=== PATIENT | female | born 1965 | race Caucasian/White ===

== ENCOUNTER 2018-05-30 19:10 | Inpatient (IN) | payer BC ==
[2018-05-30] MEDS ORDERED: SODIUM CHLORIDE 0.9% 500 ML IV ONE (19:39)
--- NOTE | 2018-05-30 19:47 | ED ---
General Adult HPI - General Chief complaint: Altered Mental Status Stated complaint: confusion Time Seen by Provider: 05/30/18 19:24 Source: patient, family, RN notes reviewed, old records reviewed Mode of arrival: ambulatory Limitations: no limitations - History of Present Illness Initial comments: 53-year-old female presents with confusion that began approximately 3 PM today. She presents for evaluation at 7:30 PM. Patient is accompanied by her daughter who states he's had some repetitive questioning. She states she can remember certain events however the day overall feels cloudy. Denies any focal numbness or weakness. She has reported a mild headache associated with her symptoms. Denies chest pain or shortness of breath. Denies abdominal pain. Denies nausea vomiting or diarrhea. She has history of gastric bypass and is on vitamin supplementation. No past medical history of hypertension or diabetes. She is otherwise healthy. Denies fever or chills. - Related Data Home Medications Medication Instructions Recorded Confirmed rOPINIRole HCL [Requip] 4 mg PO HS 08/28/14 05/30/18 Dextroamphetamine/Amphetamine 30 mg PO TID PRN 06/18/15 05/30/18 [Adderall] PARoxetine [Paxil] 20 mg PO DAILY 08/28/16 05/30/18 Multivitamins, Thera [Multivitamin 1 tab PO DAILY 08/20/17 05/30/18 (formulary)] Allergies Allergy/AdvReac Type Severity Reaction Status Date / Time meperidine HCl [From Demerol] Allergy Anaphylaxis Verified 05/30/18 19:32 Review of Systems ROS Statement: Those systems with pertinent positive or pertinent negative responses have been documented in the HPI. ROS Other: All systems not noted in ROS Statement are negative. Past Medical History Past Medical History: Blood Disorder Additional Past Medical History / Comment(s): MITRAL VALVE PROLAPSE, insomnia, restless leg, dardive dyskinesia, numbnes right fingers. ANEMIA History of Any Multi-Drug Resistant Organisms: None Reported Past Surgical History: Bariatric Surgery, Cholecystectomy, Hysterectomy Additional Past Surgical History / Comment(s): extra ureter removed, carpal tunnel surg caitlin, cubital tunnel right elbow, D&C x2 Past Anesthesia/Blood Transfusion Reactions: No Reported Reaction Past Psychological History: Anxiety, Depression Smoking Status: Former smoker Past Alcohol Use History: None Reported Past Drug Use History: None Reported General Exam Limitations: no limitations General appearance: alert, in no apparent distress Head exam: Present: atraumatic, normocephalic Eye exam: Present: normal appearance, PERRL, EOMI, nystagmus ENT exam: Present: mucous membranes dry Neck exam: Present: normal inspection, meningismus Respiratory exam: Present: normal lung sounds bilaterally. Absent: respiratory distress, wheezes Cardiovascular Exam: Present: regular rate, normal rhythm GI/Abdominal exam: Present: soft, distended, tenderness Extremities exam: Present: normal inspection, normal capillary refill. Absent: pedal edema Neurological exam: Present: alert, oriented X3, CN II-XII intact. Absent: motor sensory deficit Psychiatric exam: Present: normal affect, normal mood Skin exam: Present: warm, dry, intact. Absent: cyanosis, diaphoretic Course Vital Signs 05/30/18 05/30/18 19:17 20:22 Temperature 98.7 F Pulse Rate 109 H 76 Respiratory 20 20 Rate Blood Pressure 105/63 113/73 O2 Sat by Pulse 100 99 Oximetry EKG Findings - EKG Comments: EKG Findings:: EKG: Normal sinus rhythm, rate of 87, HI interval 150, QRS duration 78, QTC 435, no ST segment elevation or depression Medical Decision Making - Medical Decision Making 53-year-old female presenting with confusion and amnesia. Patient has nonfocal neurologic exam. She did report mild headache with her symptoms. Head CT is obtained, negative for any intracranial hemorrhage or mass effect. No acute findings. Laboratory workup including CBC, CMP is unremarkable. Urinalysis is nitrate positive, 5 wbc's with some bacteria. Urine culture pending, patient will be treated for urinary tract infection although she has no urinary symptoms at this time. Patient will be placed in observation, for neurology consultation, concern that the symptoms may be related to TIA. - Lab Data Result diagrams: 05/30/18 19:45 05/30/18 19:45 Lab Results 05/30/18 05/30/18 05/30/18 Range/Units 19:45 19:45 19:45 WBC 7.1 (3.8-10.6) k/uL RBC 5.04 (3.80-5.40) m/uL Hgb 13.3 (11.4-16.0) gm/dL Hct 43.0 (34.0-46.0) % MCV 85.4 (80.0-100.0) fL MCH 26.5 (25.0-35.0) pg MCHC 31.0 (31.0-37.0) g/dL RDW 17.2 H (11.5-15.5) % Plt Count 301 (150-450) k/uL Neutrophils % 67 % Lymphocytes % 25 % Monocytes % 5 % Eosinophils % 2 % Basophils % 1 % Neutrophils # 4.8 (1.3-7.7) k/uL Lymphocytes # 1.8 (1.0-4.8) k/uL Monocytes # 0.3 (0-1.0) k/uL Eosinophils # 0.1 (0-0.7) k/uL Basophils # 0.1 (0-0.2) k/uL Hypochromasia Slight Anisocytosis Slight PT (9.0-12.0) sec INR (<1.2) APTT (22.0-30.0) sec Sodium 140 (137-145) mmol/L Potassium 4.0 (3.5-5.1) mmol/L Chloride 105 (98-107) mmol/L Carbon Dioxide 25 (22-30) mmol/L Anion Gap 10 mmol/L BUN 22 H (7-17) mg/dL Creatinine 0.91 (0.52-1.04) mg/dL Est GFR (CKD-EPI)AfAm 83 (>60 ml/min/1.73 sqM) Est GFR (CKD-EPI)NonAf 72 (>60 ml/min/1.73 sqM) Glucose 97 (74-99) mg/dL Calcium 9.7 (8.4-10.2) mg/dL Total Bilirubin 0.6 (0.2-1.3) mg/dL AST 17 (14-36) U/L ALT 22 (9-52) U/L Alkaline Phosphatase 87 (38-126) U/L Total Creatine Kinase 32 (30-135) U/L CK-MB (CK-2) 0.3 (0.0-2.4) ng/mL CK-MB (CK-2) Rel Index 0.9 Troponin I <0.012 (0.000-0.034) ng/mL Total Protein 7.1 (6.3-8.2) g/dL Albumin 4.0 (3.5-5.0) g/dL Urine Color Urine Appearance (Clear) Urine pH (5.0-8.0) Ur Specific [place] (1.001-1.035) Urine Protein (Negative) Urine Glucose (UA) (Negative) Urine Ketones (Negative) Urine Blood (Negative) Urine Nitrite (Negative) Urine Bilirubin (Negative) Urine Urobilinogen (<2.0) mg/dL Ur Leukocyte Esterase (Negative) Urine RBC (0-5) /hpf Urine WBC (0-5) /hpf Ur Squamous Epith Cells (0-4) /hpf Urine Bacteria (None) /hpf Urine Mucus (None) /hpf Urine Opiates Screen (NotDetected) Ur Oxycodone Screen (NotDetected) Urine Methadone Screen (NotDetected) Ur Propoxyphene Screen (NotDetected) Ur Barbiturates Screen (NotDetected) U Tricyclic Antidepress (NotDetected) Ur Phencyclidine Scrn (NotDetected) Ur Amphetamines Screen (NotDetected) U Methamphetamines Scrn (NotDetected) U Benzodiazepines Scrn (NotDetected) Urine Cocaine Screen (NotDetected) U Marijuana (THC) Screen (NotDetected) 05/30/18 05/30/18 Range/Units 19:45 20:30 WBC (3.8-10.6) k/uL RBC (3.80-5.40) m/uL Hgb (11.4-16.0) gm/dL Hct (34.0-46.0) % MCV (80.0-100.0) fL MCH (25.0-35.0) pg MCHC (31.0-37.0) g/dL RDW (11.5-15.5) % Plt Count (150-450) k/uL Neutrophils % % Lymphocytes % % Monocytes % % Eosinophils % % Basophils % % Neutrophils # (1.3-7.7) k/uL Lymphocytes # (1.0-4.8) k/uL Monocytes # (0-1.0) k/uL Eosinophils # (0-0.7) k/uL Basophils # (0-0.2) k/uL Hypochromasia Anisocytosis PT 9.6 (9.0-12.0) sec INR 1.0 (<1.2) APTT 21.8 L (22.0-30.0) sec Sodium (137-145) mmol/L Potassium (3.5-5.1) mmol/L Chloride (98-107) mmol/L Carbon Dioxide (22-30) mmol/L Anion Gap mmol/L BUN (7-17) mg/dL Creatinine (0.52-1.04) mg/dL Est GFR (CKD-EPI)AfAm (>60 ml/min/1.73 sqM) Est GFR (CKD-EPI)NonAf (>60 ml/min/1.73 sqM) Glucose (74-99) mg/dL Calcium (8.4-10.2) mg/dL Total Bilirubin (0.2-1.3) mg/dL AST (14-36) U/L ALT (9-52) U/L Alkaline Phosphatase (38-126) U/L Total Creatine Kinase (30-135) U/L CK-MB (CK-2) (0.0-2.4) ng/mL CK-MB (CK-2) Rel Index Troponin I (0.000-0.034) ng/mL Total Protein (6.3-8.2) g/dL Albumin (3.5-5.0) g/dL Urine Color Yellow Urine Appearance Cloudy H (Clear) Urine pH 5.0 (5.0-8.0) Ur Specific [place] 1.020 (1.001-1.035) Urine Protein Negative (Negative) Urine Glucose (UA) Negative (Negative) Urine Ketones Negative (Negative) Urine Blood Negative (Negative) Urine Nitrite Positive H (Negative) Urine Bilirubin Negative (Negative) Urine Urobilinogen <2.0 (<2.0) mg/dL Ur Leukocyte Esterase Large H (Negative) Urine RBC 1 (0-5) /hpf Urine WBC 5 (0-5) /hpf Ur Squamous Epith Cells 3 (0-4) /hpf Urine Bacteria Occasional H (None) /hpf Urine Mucus Occasional H (None) /hpf Urine Opiates Screen Not Detected (NotDetected) Ur Oxycodone Screen Not Detected (NotDetected) Urine Methadone Screen Not Detected (NotDetected) Ur Propoxyphene Screen Not Detected (NotDetected) Ur Barbiturates Screen Not Detected (NotDetected) U Tricyclic Antidepress Not Detected (NotDetected) Ur Phencyclidine Scrn Not Detected (NotDetected) Ur Amphetamines Screen Not Detected (NotDetected) U Methamphetamines Scrn Not Detected (NotDetected) U Benzodiazepines Scrn Not Detected (NotDetected) Urine Cocaine Screen Not Detected (NotDetected) U Marijuana (THC) Screen Not Detected (NotDetected) Disposition Clinical Impression: Altered mental status, Amnesia, TIA (transient ischemic attack) Disposition: ADMITTED IP TO THIS [facility] Condition: Stable Is patient prescribed a controlled substance at d/c from ED?: No Referrals: Marlin Templeton MD [Primary Care Provider] - 1-2 days Decision to Admit Reason: Admit from EC Decision Date: 05/30/18 Decision Time: 21:28
[2018-05-30 20:00] LABS: Anisocytosis Slight; Basophils # (A) 0.1 k/uL (0-0.2); Basophils % (A) 1 %; Eosinophils # (A) 0.1 k/uL (0-0.7); Eosinophils % (A) 2 %; HGB 13.3 gm/dL (11.4-16.0); Hypochromasia Slight; Lymphocytes # (A) 1.8 k/uL (1.0-4.8); Lymphocytes % (A) 25 %; MCH 26.5 pg (25.0-35.0); MCV 85.4 fL (80.0-100.0); Mean Platelet Volume 6.3; Monocytes # (A) 0.3 k/uL (0-1.0); Monocytes % (A) 5 %; Neutrophils # (A) 4.8 k/uL (1.3-7.7); Neutrophils % (A) 67 %; Platelet Count 301 k/uL (150-450); RBC 5.04 m/uL (3.80-5.40); RDW 17.2 % (11.5-15.5); WBC 7.1 k/uL (3.8-10.6)
--- NOTE | 2018-05-30 20:09 | XR ---
EXAMINATION TYPE: XR chest 2V DATE OF EXAM: 05/30/2018 COMPARISON: NONE HISTORY: Altered mental status TECHNIQUE: Frontal and lateral views of the chest are obtained. FINDINGS: Heart and mediastinum are normal. Lungs are clear. Diaphragm is normal. Bony thorax appear s normal. There are chest leads. IMPRESSION: Normal chest.
[2018-05-30 20:12] LABS: Calcium 9.7 mg/dL (8.4-10.2); Total Bilirubin 0.6 mg/dL (0.2-1.3); Total Protein 7.1 g/dL (6.3-8.2)
--- NOTE | 2018-05-30 20:15 | CT ---
EXAMINATION TYPE: CT brain wo con DATE OF EXAM: 05/30/2018 COMPARISON: None HISTORY: Confusion. CT DLP: 1121 mGycm Automated exposure control for dose reduction was used. FINDINGS: Ventricles of normal size. There is no mass effect nor midline shift. There is no sign of intracrania l hemorrhage. The calvarium is intact. IMPRESSION: NEGATIVE CT SCAN OF THE BRAIN.
[2018-05-30 20:17] LABS: Creatine Kinase 32 U/L (30-135); Partial Thromboplastin Time 21.8 sec (22.0-30.0); Prothrombin Time 9.6 sec (9.0-12.0)
[2018-05-30 20:30] LABS: Creatine Kinase MB 0.3 ng/mL (0.0-2.4); Troponin I <0.012 ng/mL (0.000-0.034)
[2018-05-30 20:46] LABS: Appearance,Urine Cloudy (Clear); Bacteria,Urine Occasional /hpf; Bilirubin,Urine Negative (Negative); Blood,Urine Negative (Negative); Color,Urine Yellow; Glucose,Urine (UA) Negative (Negative); Ketones,Urine Negative (Negative); Leukocyte Esterase,Urine Large (Negative); Mucus,Urine Occasional /hpf; Nitrite,Urine Positive (Negative); Protein,Urine Negative (Negative); RBC,Urine 1 /hpf (0-5); Squamous Epithelial Cell,Urine 3 /hpf (0-4); Urobilinogen,Urine <2.0 mg/dL (<2.0); WBC,Urine 5 /hpf (0-5)
[2018-05-30 20:53] LABS: Amphetamine Screen,Urine Not Detected (NotDetected); Barbiturate Screen,Urine Not Detected (NotDetected); Benzodiazepines Screen,Urine Not Detected (NotDetected); Cocaine Screen,Urine Not Detected (NotDetected); Methadone Screen, Urine Not Detected (NotDetected); Opiate Screen,Urine Not Detected (NotDetected); Oxycodone Screen, Urine Not Detected (NotDetected); Phencyclidine Screen,Urine Not Detected (NotDetected); Tricyclic Antidepressant,Urine Not Detected (NotDetected); Urn Cannabinoid Scrn Not Detected (NotDetected)
[2018-05-30] MEDS ORDERED: cefTRIAXone 2,000 MG in SODIUM CHLORIDE 0.9% 100 ML IVPB STA (21:01)
[2018-05-30] MEDS ORDERED: ASPIRIN 325 MG TAB PO STA (21:22)
[2018-05-30] MEDS: SODIUM CHLORIDE 0.9% 1,000 ML IV SCH (21:31)
[2018-05-30] MEDS ORDERED: rOPINIRole HCL 4 MG TABLET PO ONE (22:00)
[2018-05-31 05:57] LABS: Glucose,Whole Blood 91 mg/dL (75-99)
[2018-05-31 06:17] LABS: Cholesterol 214 mg/dL (<200); HDL Cholesterol 48 mg/dL (40-60); LDL Cholesterol,Calculated 149 mg/dL (0-99); Triglycerides 85 mg/dL (<150)
[2018-05-31] MEDS: ASPIRIN 325 MG TAB PO SCH (08:37)
[2018-05-31] MEDS: PARoxetine 20 MG TAB PO SCH (08:37)
--- NOTE | 2018-05-31 10:28 | ECHOF ---
Referral Reason:Thrombus MEASUREMENTS -------- HEIGHT: 177.8 cm WEIGHT: 101.2 kg BP: 104/51 RVIDd: 3.2 cm (< 3.3) IVSd: 0.9 cm (0.6 - 1.1) LVIDd: 4.9 cm (3.9 - 5.3) LVPWd: 0.9 cm (0.6 - 1.1) IVSs: 1.5 cm LVIDs: 3.2 cm LVPWs: 1.4 cm LA Diam: 3.7 cm (2.7 - 3.8) LAESV Index (A-L): 21.24 ml/m Ao Diam: 3.2 cm (2.0 - 3.7) AV Cusp: 2.6 cm (1.5 - 2.6) MV EXCURSION: 19.197 mm (> 18.000) MV EF SLOPE: 80 mm/s (70 - 150) EPSS: 0.3 cm MV E Maximiliano: 0.56 m/s MV DecT: 359 ms MV A Maximiliano: 0.77 m/s MV E/A Ratio: 0.73 RAP: 5.00 mmHg RVSP: 31.05 mmHg FINDINGS -------- Sinus rhythm. This was a technically good study. The left ventricular size is normal. Left ventricular wall thickness is normal. Overall left vent ricular systolic function is normal with, an EF between 60 - 65 %. The right ventricle is normal in size. Normal LA size by volume 22+/-6 ml/m2. The right atrium is normal in size. Trace to mild aortic regurgitation. Mild mitral annular calcification present. Mild tricuspid regurgitation present. Right ventricular systolic pressure is normal at < 35 mmHg. Trace/mild (physiologic) pulmonic regurgitation. The aortic root size is normal. Normal inferior vena cava with normal inspiratory collapse consistent with estimated right atrial pre ssure of 5 mmHg. There is no pericardial effusion. CONCLUSIONS -------- 1. Sinus rhythm. 2. This was a technically good study. 3. The left ventricular size is normal. 4. Left ventricular wall thickness is normal. 5. Overall left ventricular systolic function is normal with, an EF between 60 - 65 %. 6. The right ventricle is normal in size. 7. Normal LA size by volume 22+/-6 ml/m2. 8. The right atrium is normal in size. 9. Trace to mild aortic regurgitation. 10. Mild mitral annular calcification present. 11. Mild tricuspid regurgitation present. 12. Right ventricular systolic pressure is normal at < 35 mmHg. 13. Trace/mild (physiologic) pulmonic regurgitation. 14. The aortic root size is normal. 15. Normal inferior vena cava with normal inspiratory collapse consistent with estimated right atrial pressure of 5 mmHg. 16. There is no pericardial effusion. CHEMICAL SALES REPRESENTATIVE: Halima Cano RDCS
[2018-05-31] MEDS ORDERED: Potassium Replacement Protocol 1 EACH MISC MISCELLANE PRN (12:40)
[2018-05-31] MEDS ORDERED: Magnesium Replacement Protocol 1 EACH MISC MISCELLANE PRN (12:41)
[2018-05-31] MEDS: ACETAMINOPHEN TAB 325 MG TAB PO PRN (12:44)
[2018-05-31] MEDS: MULTIVITAMINS, THERA 1 EACH TAB PO SCH (12:45)
[2018-05-31 13:58] LABS: Anion Gap 9 mmol/L; Blood Urea Nitrogen 21 mg/dL (7-17); Calcium 9.1 mg/dL (8.4-10.2); Carbon Dioxide 22 mmol/L (22-30); Chloride 107 mmol/L (98-107); Glucose 101 mg/dL (74-99); Magnesium 1.8 mg/dL (1.6-2.3); Potassium 4.3 mmol/L (3.5-5.1); Sodium 138 mmol/L (137-145)
[2018-05-31] MEDS ORDERED: DEXTROAMPHETAMINE PO PRN (14:09)
[2018-05-31] MEDS ORDERED: AMPHETAMINE PO PRN (14:09)
--- NOTE | 2018-05-31 15:21 | CONS ---
CONSULTATION DATE OF SERVICE: 05/31/2018 CHIEF COMPLAINTS: Change in mental status and confusion. HISTORY OF PRESENT ILLNESS: This 53-year-old woman with a past medical history of multiple medical problems including mitral valve prolapse, insomnia, restless legs, history of tardive dyskinesia, numbness of right fingers also had bariatric surgery. The patient is followed by primary physician elsewhere regarding the bariatric followup also. The patient has gait but yesterday the noted that around 3 pm, the patient had an episode of confusion, feeling cloudy. Patient unable to remember. Patient complains of mild headache. Also the patient came to [facility] for further evaluation and treatment. The CT scan of the brain was done which did not show any acute abnormality and the patient admitted for further evaluation and treatment. There is no history of fever or rigors. No history of headache, loss of consciousness , seizures at this time. An MRI and MRA has been ordered at this time. There is no history of any fever, rigors. No history of headache, loss of consciousness, or seizures at this time. PAST MEDICAL HISTORY: Mitral valve prolapse, history of insomnia, restless legs syndrome, history of tardive dyskinesia, history of bariatric surgery, cholecystectomy. MEDICATIONS PRIOR TO ADMISSION INCLUDE: 1. Requip 4 mg q.h.s. 2. Medrol 30 mg p.o. t.i.d. p.r.n. 3. Paxil 20 mg p.o. daily. 4. Multivitamins 1 p.o. daily. ALLERGIES: DEMEROL. FAMILY HISTORY: History of cancer as well as depression, suicide in the family. SOCIAL HISTORY: Previous smoker, no history of current smoking or alcohol intake. REVIEW OF SYSTEMS: ENT: No diminished vision. CARDIOVASCULAR SYSTEM: No stenosis. RESPIRATION: No cough or hemoptysis. GI: As mentioned earlier. : No dysuria. NERVOUS SYSTEM: No numbness or weakness. ALLERGY/IMMUNOLOGY: No asthma or hayfever. MUSCULOSKELETAL: As mentioned earlier. RHEUMATOLOGY: As mentioned earlier. HEMATOLOGY: No history of anemia. ENDOCRINE: No history of diabetes or hypothyroidism. CONSTITUTIONAL: As mentioned earlier. DERMATOLOGY: Negative. RHEUMATOLOGY: Negative. PSYCHIATRY: As mentioned earlier. PHYSICAL EXAMINATION: Patient is alert and oriented x3. Pulse 74, blood pressure 93/51, respiration 18, temperature 97.3, pulse ox 94% on room air. HEENT: Conjunctivae normal. Oral mucosa moist. Neck is no jugular venous distention. No lymph node enlargement. CARDIOVASCULAR: S1, S2. muffled. RESPIRATORY: Breath sounds diminished at the bases, no rhonchi, no crackles. ABDOMEN: Soft, nontender. No mass palpable. LEGS: No edema, no swelling. NERVOUS SYSTEM: Higher functions as mentioned earlier, mild diffuse weakness. No focal deficits. No sensory dysfunction. LYMPHATICS: No lymph node enlargement in the neck or axillae. SKIN: No ulcer, rash, bleeding. LABS: CBC within normal limits. BUN is 22, creatinine 0.91, cholesterol is 214, LDL is 149, UA noted, possibly UTI. ASSESSMENT: 1. Change in mental status and confusion, possibly acute transient ischemic attack. 2. Hyperlipidemia. 3. Possibly urinary tract infection. 4. History of bariatric surgery. 5. History of mitral valve prolapse. 6. Restless leg syndrome. 7. History of tardive dyskinesia. 8. History of anemia. 9. History of cholecystectomy. 10.History of anxiety, depression. RECOMMENDATION: In this 53-year-old woman who presented with multiple complex medical issues, will monitor the patient closely. Continue with the current management and symptomatic treatment. Otherwise at this time, I would recommend broad-spectrum IV antibiotics, antiplatelet agents and otherwise neurology evaluation. Lipitor will be initiated. DVT prophylaxis. Resume the home medications. Supplement vitamins. Recommend close follow up with primary physician. Outpatient MRA and MRI has been ordered. Prognosis guarded. Discussed with the patient, understands. Further recommendations to follow. MMODL / IJN: [id number] / MTDCarrie
--- NOTE | 2018-05-31 16:46 | MR ---
EXAMINATION TYPE: MR angio head wo con DATE OF EXAM: 05/31/2018 COMPARISON: NONE HISTORY: Confusion, amnesia, poss TIA TECHNIQUE: Time of flight images focusing on the [place] of [place] were performed without contrast.. 2-D and 3-D postprocessing imaging is performed on MRI scanner. FINDINGS: There is dominant left vertebral artery. Vertebral arteries are patent to basilar junction. There is no significant focal stenosis or aneurysmal change in the posterior circulation. There is p atent right posterior communicating artery filling right P2 segment. There is small caliber right P1 segment noted. There is hypoplastic left posterior communicating artery. Images of the anterior circulation show no significant focal stenosis or aneurysmal change. Patent an terior communicating artery is not well visualized. IMPRESSION: No aneurysmal change at the level of the [place] of [place].
--- NOTE | 2018-05-31 17:18 | MR ---
EXAMINATION TYPE: MR brain wo/w con DATE OF EXAM: 05/31/2018 COMPARISON: HISTORY: Confusion, amnesia, poss TIA TECHNIQUE: Multiplanar, multisequence images of the brain and brainstem is performed without and with IV contras t, utilizing 10 mL intravenous Gadavist . FINDINGS: Ventricles of normal size. There is no mass effect nor midline shift. There is no sign of intracrania l hemorrhage. There is no evidence of a cortical infarct. Henry-white matter structures have fairly no rmal signal pattern. There is no evidence of cerebral edema. Brainstem appears normal. Corpus callosu m appears normal. Sella turcica appears normal. There is a large pituitary gland without a focal defe ct. There is uniform enhancement. IMPRESSION: Large pituitary gland consistent with hypertrophy. No discrete mass. Otherwise negative e xam.
[2018-05-31] MEDS: 0.9% NACL WITH KCL 20 MEQ/L 1,000 ML with MVI, ADULT NO.4 WITH VIT K 10 ML, THIAMINE 10... IV SCH ×4 (18:00)
[2018-05-31] MEDS: MAGNESIUM SULFATE-D5W PMX 1 GM in DEXTROSE/WATER 1 100ML.BAG IVPB SCH ×2 (18:01→20:53)
[2018-05-31] MEDS: SODIUM CHLORIDE 0.9% 1,000 ML IV SCH (19:00)
[2018-05-31] MEDS: HEPARIN SODIUM,PORCINE 5,000 UNIT/ML 1 ML VIAL SQ SCH (20:52)
[2018-05-31] MEDS ORDERED: rOPINIRole HCL 4 MG TABLET PO SCH (21:00)
[2018-05-31] MEDS ORDERED: ATORVASTATIN 40 MG TAB PO SCH (21:00)
[2018-06-01] MEDS: 0.9% NACL WITH KCL 20 MEQ/L 1,000 ML with MVI, ADULT NO.4 WITH VIT K 10 ML, THIAMINE 10... IV SCH ×4 (02:52)
[2018-06-01 06:55] LABS: Anisocytosis Slight; Basophils # (A) 0.1 k/uL (0-0.2); Basophils % (A) 1 %; Eosinophils # (A) 0.1 k/uL (0-0.7); Eosinophils % (A) 3 %; HCT 40.5 % (34.0-46.0); HGB 12.5 gm/dL (11.4-16.0); Hypochromasia Slight; Lymphocytes # (A) 1.5 k/uL (1.0-4.8); Lymphocytes % (A) 33 %; MCH 26.4 pg (25.0-35.0); MCHC 30.8 g/dL (31.0-37.0); MCV 85.8 fL (80.0-100.0); Mean Platelet Volume 6.3; Monocytes # (A) 0.2 k/uL (0-1.0); Monocytes % (A) 5 %; Neutrophils # (A) 2.5 k/uL (1.3-7.7); Neutrophils % (A) 56 %; Platelet Count 262 k/uL (150-450); RBC 4.72 m/uL (3.80-5.40); RDW 17.2 % (11.5-15.5); WBC 4.5 k/uL (3.8-10.6)
[2018-06-01 07:17] LABS: Anion Gap 6 mmol/L; Blood Urea Nitrogen 17 mg/dL (7-17); Calcium 9.3 mg/dL (8.4-10.2); Carbon Dioxide 27 mmol/L (22-30); Chloride 107 mmol/L (98-107); Glucose 93 mg/dL (74-99); Magnesium 2.2 mg/dL (1.6-2.3); Potassium 4.8 mmol/L (3.5-5.1); Sodium 140 mmol/L (137-145)
[2018-06-01] MEDS: ACETAMINOPHEN TAB 325 MG TAB PO PRN ×2 (08:00→11:57)
[2018-06-01] MEDS: ASPIRIN 325 MG TAB PO SCH (08:01)
[2018-06-01] MEDS: HEPARIN SODIUM,PORCINE 5,000 UNIT/ML 1 ML VIAL SQ SCH (08:01)
[2018-06-01] MEDS: PARoxetine 20 MG TAB PO SCH (08:01)
--- NOTE | 2018-06-01 08:16 | P.CNNES ---
History of Present Illness Consult date: 05/31/18 Reason for Consult: Patient admitted for confusion and TIA symptoms. History of Present Illness: This patient is a 53-year-old right-handed white female who apparently developed sudden onset of confusion and disorientation at home at about 3 PM. Patient states she was at home and was having difficulty concentrating and performing her normal activities at home. Apparently her daughter who was with her noted that she was repeating herself at home throughout this entire episode. She also complained of mild headache symptoms. Patient states she follows with her primary care physician in the [place] area Dr. Templeton. She has been seen there and follows up on a regular basis with this physician. Patient apparently was questioned by family members and had evidence of amnesia as she was having difficulty recollecting that she was supposed to go on a cruise in October of next year. She had no idea that she has already been registered for this cruise and was unable to provide any details to the family members when questioned about this. Once again the patient was noted also to have a repetition of questions throughout the day yesterday. For these reasons there was concern from the family and they decided to bring her to the emergency room at [facility] for further evaluation. She was seen in the ER by Dr. Barillas who noted that she was somewhat confused. Due to the altered mental status and the amnesia it was recommended she be admitted to the hospital for further evaluation. She does have history of mild confusion but not to the degree of symptoms that caused her admission today. She was sent for an MRI of the brain for further evaluation today. 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 No discrete mass was noted. Otherwise MRI of the brain was reported negative. The patient also underwent MRA angiogram of the head. This study revealed no aneurysm at the level of the [place]. We reviewed the results of the MRI/MRA today in detail with the patient. We reviewed the results of this MRI today with the patient. We recommend she be referred to an neurology stroke physician for further follow-up regarding the pituitary lesion. Patient states she does get headaches but nothing severe. She denies any visual problems or visual loss. She does have a history of gastric bypass surgery in the past which apparently has not been of any recent concern. She does have a history of restless leg syndrome and does take Requip. She also is being treated for ADHD and is using Adderall. The patient denies any previous history of TIA or stroke. We would recommend that she be placed on one baby aspirin daily for secondary stroke prevention. The patient does have history of having undergone gastric bypass surgery in the past. As noted she also is being treated for restless leg syndrome. Her laboratory test results revealed her to have a urinary tract infection and her urine cultures are pending at this time. We would recommend the patient to be taking one baby aspirin daily as her clinical history suggesting possibility of transient global amnesia. The patient is been admitted for further workup and recommendations. Neurology is now been consulted for further evaluation and recommendations. Review of Systems Constitutional: Denies chills, Denies fever Eyes: denies blurred vision, denies pain Ears, nose, mouth and throat: Denies headache, Denies sore throat Cardiovascular: Denies chest pain, Denies shortness of breath Respiratory: Denies cough Gastrointestinal: Denies abdominal pain, Denies diarrhea, Denies nausea, Denies vomiting Genitourinary: Denies dysuria, Denies hematuria Musculoskeletal: Denies myalgias Integumentary: Denies pruritus, Denies rash Neurological: Reports change in mentation, Reports confusion, Reports headaches , Reports memory loss, Denies numbness, Denies weakness Psychiatric: Reports confusion, Reports disorientation, Reports memory loss, Denies anxiety, Denies depression Endocrine: Denies fatigue, Denies weight change Past Medical History Past Medical History: Blood Disorder Additional Past Medical History / Comment(s): MITRAL VALVE PROLAPSE, insomnia, restless leg, dardive dyskinesia, numbnes right fingers. ANEMIA History of Any Multi-Drug Resistant Organisms: None Reported Past Surgical History: Bariatric Surgery, Cholecystectomy, Hysterectomy Additional Past Surgical History / Comment(s): extra ureter removed, carpal tunnel surg caitlin, cubital tunnel right elbow, D&C x2 Past Anesthesia/Blood Transfusion Reactions: No Reported Reaction Past Psychological History: Anxiety, Depression Smoking Status: Former smoker Past Alcohol Use History: None Reported Past Drug Use History: None Reported - Past Family History Father Family Medical History: Cancer Mother Additional Family Medical History / Comment(s): RLS, depression, committed suicide Sister(s) Additional Family Medical History / Comment(s): RLS Brother(s) Additional Family Medical History / Comment(s): RLS Medications and Allergies Home Medications Medication Instructions Recorded Confirmed Type rOPINIRole HCL [Requip] 4 mg PO HS 08/28/14 05/30/18 History Dextroamphetamine/Amphetamine 30 mg PO TID PRN 06/18/15 05/30/18 History [Adderall] PARoxetine [Paxil] 20 mg PO DAILY 08/28/16 05/30/18 History Multivitamins, Thera [Multivitamin 1 tab PO DAILY 08/20/17 05/30/18 History (formulary)] Allergies Allergy/AdvReac Type Severity Reaction Status Date / Time meperidine HCl [From Demerol] Allergy Anaphylaxis Verified 05/30/18 22:08 Physical Examination - Vital Signs Vital Signs: Vital Signs Temp Pulse Pulse Resp BP BP BP 05/31/18 08:00 97.3 F L 74 18 93/51 05/31/18 04:00 65 16 104/51 05/31/18 00:00 97.2 F L 85 17 117/74 05/30/18 21:50 98.3 F 85 18 124/59 05/30/18 21:25 68 20 108/58 05/30/18 20:22 76 20 113/73 05/30/18 19:17 98.7 F 109 H 20 105/63 Pulse Ox 05/31/18 08:00 94 L 05/31/18 04:00 98 05/31/18 00:00 94 L 05/30/18 21:50 99 05/30/18 21:25 99 05/30/18 20:22 99 05/30/18 19:17 100 Intake and Output 05/31/18 05/31/18 05/31/18 06:59 14:59 22:59 Intake Total 300 720 Balance 300 720 Intake: IV 300 Sodium Chloride 0.9% 1, 300 000 ml @ 75 mls/hr IV . [id number] [facility] Rx#:[id number] Oral 720 Other: Voiding Method Toilet Toilet # Voids 1 2 Weight 101.2 kg - Constitutional General appearance: average body habitus, cooperative - EENT EENT: PERRL, mucous membranes moist - Respiratory Respiratory: lungs clear, normal breath sounds - Cardiovascular Cardiovascular: regular rate, normal S1, normal S2 Extremities: no clubbing, cyanosis - Gastrointestinal Gastrointestinal: normoactive bowel sounds - Integumentary Integumentary: normal - Neurologic Cranial nerve examination: PERRL, EOMI, VFF, V1/V2/V3 grossly intact, face symmetric, intact gag reflex, intact corneal reflex, normal palatal elevation Speech examination: intact Sensorimotor examination: intact Motor examination - right side: 4/5: biceps, triceps, wrist flexion, wrist extension, automotive parts counter associate, hip flexors, knee extensors, dorsiflexion, toe extension (EHL) , plantarflexion Motor examination - left side: 4/5: biceps, triceps, wrist flexion, wrist extension, automotive parts counter associate, hip flexors, knee extensors, dorsiflexion, toe extension (EHL) , plantarflexion Detailed sensory examination: intact Reflex and gait examination: intact Reflexes: 1+: ankle, bicep, knee, tricep - Musculoskeletal Musculoskeletal: no pain - Psychiatric Psychiatric: mood/affect appropriate, cooperative Results - Laboratory Findings CBC and BMP: 06/01/18 06:24 06/01/18 06:24 Abnormal Lab Findings: Abnormal Labs 05/30/18 05/30/18 05/30/18 19:45 19:45 19:45 RDW 17.2 H APTT 21.8 L BUN 22 H Glucose Cholesterol LDL Cholesterol, Calc Urine Appearance Urine Nitrite Ur Leukocyte Esterase Urine Bacteria Urine Mucus 05/30/18 05/31/18 05/31/18 20:30 05:45 13:07 RDW APTT BUN 21 H Glucose 101 H Cholesterol 214 H LDL Cholesterol, Calc 149 H Urine Appearance Cloudy H Urine Nitrite Positive H Ur Leukocyte Esterase Large H Urine Bacteria Occasional H Urine Mucus Occasional H Assessment and Plan (1) Transient global amnesia Current Visit: Yes Status: Acute Code(s): G45.4 - TRANSIENT GLOBAL AMNESIA SNOMED Code(s): 797187142 (2) Metabolic encephalopathy Current Visit: Yes Status: Acute Code(s): G93.41 - METABOLIC ENCEPHALOPATHY SNOMED Code(s): 04744006 (3) TIA (transient ischemic attack) Current Visit: Yes Status: Acute Code(s): G45.9 - TRANSIENT CEREBRAL ISCHEMIC ATTACK, UNSPECIFIED SNOMED Code(s): 507222523 (4) Restless leg syndrome Current Visit: Yes Status: Acute Code(s): G25.81 - RESTLESS LEGS SYNDROME SNOMED Code(s): 10517189 Plan: This patient is a 53-year-old female who was brought into the emergency room at [facility] today for evaluation of acute confusion. Apparently she was in the car and showed signs of immediate and rather significant confusion with amnesia. She was unable to recollect very typical points when questioned by her family. She was brought into the emergency room at [facility] for further evaluation. She was seen in the ER by Dr. Barillas and was sent for a computed tomography scan of the brain. A CAT scan of the brain failed to reveal any acute changes. She was subsequently sent for MRI of the brain results of which are noted above. She does have evidence of a large pituitary gland lesion for which we are recommending a endocrinology consultation for this patient. MR angiogram of the head and neck was negative with no evidence of aneurysm at the level of the [place]. We reviewed the results of the MRI/MRA today with the patient. We do recommend that she follow up with her primary care physician Dr. Templeton and be referred to an neurology stroke physician for follow-up regarding the pituitary lesion. Her neurological examination otherwise is nonfocal. Her clinical history suggests possibility of transient global amnesia. We would that she be placed on one baby aspirin 81 mg daily for secondary stroke prevention. She may be considered for discharge home tomorrow if she remains stable. Her overall prognosis at this time remains guarded. Time with Patient: Greater than 30
[2018-06-01 11:30] VITALS: BP 101/63; PULSE 72; RESP 16; TEMP 98.1
[2018-06-01] MEDS: MULTIVITAMINS, THERA 1 EACH TAB PO SCH (11:58)
--- NOTE | 2018-06-01 22:04 | DS ---
DISCHARGE SUMMARY FINAL DIAGNOSES: 1. Change in mental status with confusion, possible acute transient ischemic attack. 2. Pituitary hypertrophy MRI scan. 3. Hyperlipidemia. 4. Possibly urinary tract infection. 5. History of bariatric surgery. 6. History of mitral valve prolapse. 7. History of restless legs syndrome. 8. History of tardive dyskinesia. 9. History of anemia. 10.History of cholecystectomy. 11.History of anxiety/depression. DISCHARGE DISPOSITION: The patient is being discharged in stable condition with guarded prognosis. HISTORY OF PRESENT ILLNESS: This 53-year-old woman with a past medical history medical of multiple medical problems was admitted with change in mental status, confusion and possible acute transient ischemic attack. TGA was also considered by Dr. Kaiser. Patient treated symptomatically. UTI was treated with antibiotics. MRA was unremarkable. MRA showed large pituitary gland consistent with hypertrophy, recommended close outpatient follow up with Endocrine and the patient's own primary physician. On exam, vitals are stable. Cardiovascular S1, S2. Abdomen soft. Nervous system: No focal deficits. The patient improved significantly. Patient discharged in stable condition. Guarded prognosis with the following advice and medications: 1. Diet is cardiac diet. 2. Activity limited until followup. 3. Follow up with primary physician in 2-3 days. 4. Follow up with Neurology as advised. MEDICATIONS ARE: 1. Dextroamphetamine 30 mg t.i.d. p.r.n. as before. 2. Multivitamins 1 p.o. daily. 3. Paxil 20 mg. 4. Requip 4 mg q.h.s. 5. Tylenol 650 q.4h p.r.n. 6. Aspirin 81 mg p.o. daily. 7. Lipitor 40 mg p.o. q.h.s. 8. Ceftin 500 mg p.o. b.i.d. for 5 days. 9. Folic acid 1 mg daily. 10.Thiamine 100 mg p.o. daily. Once again, the patient is being discharged in stable condition with guarded prognosis. MMODL / IJN: [id number] /
== END 2018-06-01 14:35 | disposition home or self-care (01) | DRG 69 ==
LOC: EC 19:10 → 6SEL 21:31
PROVIDERS: ADMIT Internal Medicine; ATTEND Internal Medicine
DX: G45.9 Transient cerebral ischemic attack, unspecified (principal); G93.41 Metabolic encephalopathy; N39.0 Urinary tract infection, site not specified; E23.6 Other disorders of pituitary gland; E78.5 Hyperlipidemia, unspecified; F90.9 Attention-deficit hyperactivity disorder, unspecified type; G25.81 Restless legs syndrome; G45.4 Transient global amnesia; I34.1 Nonrheumatic mitral (valve) prolapse; Z79.82 Long term (current) use of aspirin; Z79.899 Other long term (current) drug therapy; Z81.8 Family history of other mental and behavioral disorders; Z87.891 Personal history of nicotine dependence; Z90.710 Acquired absence of both cervix and uterus; Z98.84 Bariatric surgery status; Z88.5 Allergy status to narcotic agent; G24.01 Drug induced subacute dyskinesia; D64.9 Anemia, unspecified; R20.0 Anesthesia of skin; F41.9 Anxiety disorder, unspecified; F32.9 Major depressive disorder, single episode, unspecified
CPT/HCPCS: 36415; 70450; 70544; 70553; 71046; 80048; 80053; 80061; 80306; 81001; 82550; 82553; 82607; 82747; 83735; 84484; 85025; 85610; 85730; 87040; 87077; 87086; 87186; 93005; 93306; 96361; 96365; 99285

== ENCOUNTER 2024-02-09 10:29 | Emergency (ER) | payer OTHER ==
[2024-02-09 11:42] VITALS: TEMP 98.4
--- NOTE | 2024-02-09 11:46 | XR ---
EXAMINATION TYPE: XR knee complete RT DATE OF EXAM: 02/09/2024 COMPARISON: None HISTORY: Pain TECHNIQUE: 3 view right knee FINDINGS: Joint spaces are preserved. Tibial plateau spurring is present medial tibial plateau. No estela int effusion is evident. Anterior superior patellar spur is present. No acute fractures are evident. Follow up exams can be performed 7-10 days from acute trauma for cont inued pain. IMPRESSION: 1. Mild degenerative changes medial compartment right knee.
--- NOTE | 2024-02-09 11:48 | ED ---
General Adult HPI - General Chief complaint: Weakness Stated complaint: Post-Op right knee pain Time Seen by Provider: 02/09/24 11:25 Source: patient, RN notes reviewed Mode of arrival: ambulatory Limitations: no limitations - History of Present Illness Initial comments: 58-year-old female presents to the emergency department for evaluation of pain behind her right knee. Patient states that this started yesterday while she was walking. She notes that the pain has progressively gotten worse. She notes that it is localized posterior to her knee. She denies any radiation of the pain. She states that she is unable to bear weight. She reports that 2 weeks ago she had a spinal cord stimulator placed. She notes that she has been doing well since then. Denies fever, chills. Denies shortness of breath, chest pain. Denies numbness, tingling in extremities. - Related Data Home Medications Medication Instructions Recorded Confirmed rOPINIRole HCL [Requip] 4 mg PO HS 08/28/14 04/14/21 Dextroamphetamine/Amphetamine 30 mg PO TID PRN 06/18/15 04/14/21 [Adderall] PARoxetine [Paxil] 20 mg PO DAILY 08/28/16 04/14/21 Multivitamins, Thera [Multivitamin 1 tab PO DAILY 08/20/17 04/14/21 (formulary)] Previous Rx's Medication Instructions Recorded Thiamine [Vitamin B-1] 100 mg PO DAILY #30 tablet 06/01/18 Cephalexin [Keflex] 500 mg PO Q8HR 5 Days #15 cap 11/19/23 Ketorolac [Toradol] 10 mg PO Q8HR #15 tab 02/09/24 methocarbamoL [Robaxin] 500 mg PO TID PRN #15 tab 02/09/24 Allergies Allergy/AdvReac Type Severity Reaction Status Date / Time meperidine HCl [From Demerol] Allergy Anaphylaxis Verified 11/19/23 11:23 Review of Systems ROS Statement: Those systems with pertinent positive or pertinent negative responses have been documented in the HPI. ROS Other: All systems not noted in ROS Statement are negative. Past Medical History Past Medical History: Blood Disorder Additional Past Medical History / Comment(s): MITRAL VALVE PROLAPSE, insomnia, restless leg, dardive dyskinesia, numbnes right fingers. ANEMIA History of Any Multi-Drug Resistant Organisms: None Reported Past Surgical History: Bariatric Surgery, Cholecystectomy, Hysterectomy Additional Past Surgical History / Comment(s): extra ureter removed, carpal tunnel surg caitlin, cubital tunnel right elbow, D&C x2 Past Anesthesia/Blood Transfusion Reactions: No Reported Reaction Past Psychological History: Anxiety, Depression Smoking Status: Former smoker Past Alcohol Use History: None Reported Past Drug Use History: None Reported - Past Family History Father Family Medical History: Cancer Mother Additional Family Medical History / Comment(s): RLS, depression, committed suicide Sister(s) Additional Family Medical History / Comment(s): RLS Brother(s) Additional Family Medical History / Comment(s): RLS General Exam Limitations: no limitations General appearance: alert, in no apparent distress Head exam: Present: atraumatic, normocephalic, normal inspection Eye exam: Present: normal appearance, PERRL, EOMI. Absent: scleral icterus, conjunctival injection, periorbital swelling ENT exam: Present: normal exam, mucous membranes moist Respiratory exam: Present: normal lung sounds bilaterally. Absent: respiratory distress, wheezes, rales, rhonchi, stridor Cardiovascular Exam: Present: regular rate, normal rhythm, normal heart sounds. Absent: systolic murmur, diastolic murmur, rubs, gallop, clicks Extremities exam: Present: full ROM, tenderness (TTP posterior to right knee), normal capillary refill, other (DP and PT pulses 2+ bilaterally). Absent: pedal edema, joint swelling, calf tenderness Back exam: Present: normal inspection Neurological exam: Present: alert, oriented X3, CN II-XII intact Psychiatric exam: Present: normal affect, normal mood Skin exam: Present: warm, dry, intact, normal color. Absent: rash Course Vital Signs 02/09/24 02/09/24 10:54 16:44 Temperature 98.4 F Pulse Rate 72 87 Respiratory 16 18 Rate Blood Pressure 115/68 115/75 O2 Sat by Pulse 97 97 Oximetry Medical Decision Making - Medical Decision Making Was pt. sent in by a medical professional or institution (, PA, CHIEF DESIGN [employer]ANCH, urgent care, hospital, or residential...) When possible be specific @ -No Did you speak to anyone other than the patient for history (EMS, parent, family, police, friend...)? What history was obtained from this source @ -No Did you review nursing and triage notes (agree or disagree)? Why? @ -I reviewed and agree with nursing and triage notes Were old charts reviewed (outside hosp., previous admission, EMS record, old EKG, old radiological studies, urgent care reports/EKG's, residential records)? Report findings @ -No old charts were reviewed Differential Diagnosis (chest pain, altered mental status, abdominal pain women, abdominal pain men, vaginal bleeding, weakness, fever, dyspnea, syncope, headache, dizziness, GI bleed, back pain, seizure, CVA, palpatations, mental health, musculoskeletal)? @ -Differential Musculoskeletal Muscular strain, contusion, ligament sprain, fracture, arthritis, septic arthritis, bursitis, cellulitis, muscle spasm, nerve compression, DVT, arterial occlusion, herpes zoster, electrolyte abnormality, tumor.... This is not meant to be in all inclusive list EKG interpreted by me (3pts min.). @ -None X-rays interpreted by me (1pt min.). @ -X-ray of the right knee shows osteoarthritic changes without acute process CT interpreted by me (1pt min.). @ -None done U/S interpreted by me (1pt. min.). @ -Ultrasound of the right lower extremity obtained which shows no evidence of DVT What testing was considered but not performed or refused? (CT, X-rays, U/S, labs)? Why? @ -None What meds were considered but not given or refused? Why? @ -None Did you discuss the management of the patient with other professionals (professionals i.e. , PA, [employer], lab, RT, psych nurse, professor of social work, music researcher, teacher, aoc director combat plans officer, family service caseworker)? Give summary @ -No Was smoking cessation discussed for >3mins.? @ -No Was critical care preformed (if so, how long)? @ -No Were there social determinants of health that impacted care today? How? (Homelessness, low income, unemployed, alcoholism, drug addiction, transportation, low edu. Level, literacy, decrease access to med. care, shelter, rehab)? @ -No Was there de-escalation of care discussed even if they declined (Discuss DNR or withdrawal of care, Hospice)? DNR status @ -No What co-morbidities impacted this encounter? (DM, HTN, Smoking, COPD, CAD, Cancer, CVA, ARF, Chemo, Hep., AIDS, mental health diagnosis, sleep apnea, morbid obesity)? @ -None Was patient admitted / discharged? Hospital course, mention meds given and route, prescriptions, significant lab abnormalities, going to OR and other pertinent info. @ -Discharge. Patient presented to the emergency department for evaluation of right lower extremity pain. She recently had a spinal cord stimulator placed. Patient underwent x-rays of the right knee which shows no evidence of acute fracture or dislocation. Ultrasound of the right lower extremity which shows no evidence of DVT. Distal pulses intact, sensation intact. Patient provided medic ation for pain control and is able to bear weight following this. She has a walker at home that she can utilize. Advised rest, ice, elevation. Patient will be discharged home. Case discussed with dr. Barillas who also evaluated the patient Undiagnosed new problem with uncertain prognosis? @ -No Drug Therapy requiring intensive monitoring for toxicity (Heparin, Nitro, Insulin, Cardizem)? @ -No Were any procedures done? @ -No Diagnosis/symptom? @ -Right knee pain Acute, or Chronic, or Acute on Chronic? @ -acute Uncomplicated (without systemic symptoms) or Complicated (systemic symptoms)? @ -uncomplicated Side effects of treatment? @ -No Exacerbation, Progression, or Severe Exacerbation? @ -No Poses a threat to life or bodily function? How? (Chest pain, [place], SC, pneumonia, PE, COPD, DKA, ARF, appy, cholecystitis, CVA, Diverticulitis, Homicidal, Suicidal, threat to staff... and all critical care pts) @ -No Disposition Clinical Impression: Right knee pain Disposition: HOME SELF-CARE Condition: Stable Instructions (If sedation given, give patient instructions): Knee Pain (ED) Additional Instructions: Do not drive or operate heavy machinery while taking muscle relaxers. Do not take any other anti-inflammatory medications such as ibuprofen, naproxen, etc while taking toradol. Follow up with your primary care provider. Return to the emergency department for new or worsening symptoms. Prescriptions: methocarbamoL [Robaxin] 500 mg PO TID PRN #15 tab PRN Reason: muscle spasms Ketorolac [Toradol] 10 mg PO Q8HR #15 tab Is patient prescribed a controlled substance at d/c from ED?: No Referrals: Marlin Templeton MD [Primary Care Provider] - 1-2 days
--- NOTE | 2024-02-09 12:46 | US ---
EXAMINATION TYPE: US venous doppler duplex LE RT DATE OF EXAM: 02/09/2024 11:27 AM COMPARISON: NONE CLINICAL INDICATION: Female, 58 years old with history of pain, recent surgery; pain SIDE PERFORMED: Right TECHNIQUE: The lower extremity deep venous system is examined utilizing real time linear array sonog lucy with graded compression, doppler sonography and color-flow sonography. VESSELS IMAGED: Common Femoral Vein Deep Femoral Vein Greater Saphenous Vein * Femoral Vein Popliteal Vein Small Saphenous Vein * Proximal Calf Veins (* superficial vessels) Right Leg: Negative for DVT IMPRESSION: 1. Right lower extremity ultrasound negative for deep venous thrombosis.
[2024-02-09] MEDS: KETOROLAC 15 MG/ML 1 ML VIAL IM STA (15:27)
[2024-02-09 17:25] VITALS: BP 115/75; PULSE 87; RESP 18
== END 2024-02-09 16:45 | disposition home or self-care (01) ==
LOC: EC 10:29
DX: M25.561 Pain in right knee (principal); Z87.891 Personal history of nicotine dependence; Z88.5 Allergy status to narcotic agent
CPT/HCPCS: 73562; 93971; 99285; 96372; J1885

== ENCOUNTER 2024-12-03 09:57 | Day surgery (SDC) | payer BC, OTHER ==
[2024-10-24 14:56] VITALS: BMI 35.4
[~2024-12-03 09:57] MED LIST: LACTATED RINGERS 1,000 ML IV SCH; LIDOCAINE 1% (10MG/ML) FOR IV START INTRADERMA PRN
[2024-12-03 10:39] VITALS: RESP 18; TEMP 97.9
[2024-12-03] MEDS: LACTATED RINGERS 1,000 ML IV SCH (10:49)
[2024-12-03] MEDS: IV FLUID CONTINUATION 1,000 ML IV ONE (10:50)
[2024-12-03] MEDS ORDERED: LIDOCAINE 1% INJ 10MG/ML (20 ML MDV) ONE (11:15)
[2024-12-03] MEDS ORDERED: PROPOFOL 10 MG/ML 20 ML VIAL IV ONE (11:15)
--- NOTE | 2024-12-03 11:32 | P.PCN ---
Date of Procedure: 12/03/24 Procedure(s) Performed: BRIEF HISTORY: Patient is a 59-year-old pleasant white female scheduled for an elective colonoscopy as a part of for colon cancer. PROCEDURE PERFORMED: Colonoscopy. PREOPERATIVE DIAGNOSIS: Screening for colon cancer. IV sedation per Anesthesia. PROCEDURE: After informed consent was obtained, the patient, was brought into the endoscopy unit. IV sedation was administered by Anesthesia under continuous monitoring. Digital rectal examination was normal. Initially the Olympus CF-160 flexible video colonoscope was then inserted in the rectum, gradually advanced into the cecum without any difficulty. Careful examination was performed as the scope was gradually being withdrawn. Ileocecal valve and the appendiceal orifice were visualized and appeared normal. Prep was excellent. Mucosa of the cecum, ascending colon, transverse colon, descending colon, sigmoid colon, and rectum appeared normal. Retroflexion was performed in the rectum and no lesions were seen. The patient tolerated the procedure well. IMPRESSION: Normal-appearing colon from rectum to cecum with no evidence of colorectal neoplasia. RECOMMENDATIONS: Findings of this examination were discussed with the patient as well as her family. She was advised to have repeat screening colonoscopy in 10 years..
[2024-12-03 11:53] VITALS: BP 108/61; PULSE 83
== END 2024-12-03 12:33 | disposition home or self-care (01) ==
LOC: ORWHC2ENDO 09:57
PROVIDERS: ATTEND Internal Medicine Gastroenterology
DX: Z12.11 Encounter for screening for malignant neoplasm of colon (principal)